=== PATIENT | male | born 1985 | race Caucasian/White ===

== ENCOUNTER 2019-05-19 09:49 | Emergency (ER) | payer OTHER ==
[~2019-05-19] VITALS: Wt 66.7 kg
[2019-05-19] MEDS ORDERED: CEPHALEXIN500 M1 PO (11:30)
[2019-05-19] MEDS ORDERED: IBUPROFEN600 MG PO (11:30)
== END 2019-05-19 12:35 | disposition home or self-care (01) ==
LOC: ED 09:49
DX: S61.512A Laceration without foreign body of left wrist, initial encounter (principal); W45.8XXA Other foreign body or object entering through skin, initial encounter; Y93.89 Activity, other specified; Y92.89 Other specified places as the place of occurrence of the external cause; Y99.8 Other external cause status